=== PATIENT | female | born 1980 | race Caucasian/White ===

== ENCOUNTER 2019-09-27 10:45 | Observation (INO) | payer OTHER ==
[~2019-09-27] VITALS: Ht 167.6 cm; Wt 81.8 kg
--- NOTE | 2019-09-27 10:59 | NUR ---
SLOT FLOOR PERSON: PT TO ROOM VIA WHEELCHAIR
--- NOTE | 2019-09-27 11:12 | NUR ---
PT CAME IN CO LEFT LEG PAIN AND SWELLING. PT ALSO STATES SHE HAS BEEN GETTING SOB EASIER AND EASIER SINCE THURSDAY. PT HAS HX OF DVTS. ACCOMPANIED BY . PT IS CONNECTED TO MONITORING EQUIPMENT
[2019-09-27 11:52] LABS: BASOPHILS # (AUTO) 0.08 x10^3/uL (0-0.1); BASOPHILS % (AUTO) 1 % (0-1); EOSINOPHILS # (AUTO) 0.12 x10^3/uL (0-0.4); EOSINOPHILS % (AUTO) 1 % (1-7); LYMPHOCYTES # (AUTO) 1.19 x10^3/uL (1-3.4); LYMPHOCYTES % (AUTO) 12 % (22-44); MD NO; MEAN CORPUSCULAR HEMOGLOBIN 31.2 pg (27.0-34.8); MEAN CORPUSCULAR HGB CONC 32.5 g/dL (32.4-35.8); MEAN CORPUSCULAR VOLUME 96.1 fL (80-100); MEAN PLATELET VOLUME 7.6 fL (7.4-10.4); MONOCYTES # (AUTO) 0.56 x10^3/uL (0.2-0.8); MONOCYTES % (AUTO) 6 % (2-9); NEUTROPHILS # (AUTO) 8.13 x10^3/uL (1.8-6.8); NEUTROPHILS % (AUTO) 81 % (42-75); PLATELET COUNT 267 x10^3/uL (130-400); RED CELL DISTRIBUTION WIDTH 13.1 % (9.6-15.2)
[2019-09-27 12:04] LABS: ALANINE AMINOTRANSFERASE 15 U/L (12-78); ALBUMIN 3.5 g/dL (3.4-5.0); ANION GAP 10 mmol/L (5-15); CHLORIDE 107 mmol/L (98-107); CREATININE 0.82 mg/dL (0.55-1.02)
[2019-09-27 12:06] LABS: ALKALINE PHOSPHATASE 87 U/L (45-117); BILIRUBIN,TOTAL 0.6 mg/dL (0.2-1.0); TOTAL PROTEIN 7.8 g/dL (6.4-8.2)
[2019-09-27 12:12] LABS: INTERNATIONAL NORMALIZED RATIO 0.96 (0.93-1.1); PROTHROMBIN TIME 10.2 Seconds (9.6-11.5)
[2019-09-27 12:20] LABS: D-DIMER 9.81 ug/mlFEU (0.00-0.52)
[2019-09-27] MEDS ORDERED: OMNIPAQUE 350 MG/ML, 75ML BOTTLE ONE (13:49)
[2019-09-27] MEDS ORDERED: APIXABAN 5 MG TABLET ONE (14:50)
[2019-09-27 15:48] VITALS: BP 150/97
[2019-09-27] MEDS ORDERED: ONDANSETRON 2MG/ML, 2ML IVPush PRN (16:00)
[2019-09-27] MEDS ORDERED: ACETAMINOPHEN 325 MG TABLET PO PRN (16:00)
[2019-09-27] MEDS ORDERED: ONDANSETRON ODT 4 MG PO PRN (16:00)
[2019-09-27] MEDS: ENOXAPARIN 80 MG/0.8 ML SQ SCH (16:54)
[2019-09-27 20:00] VITALS: BP 141/92
[2019-09-27] MEDS ORDERED: APIXABAN 5 MG TABLET PO ONE (21:00)
[2019-09-28 04:02] VITALS: BP 136/87
[2019-09-28] MEDS: ENOXAPARIN 80 MG/0.8 ML SQ SCH ×2 (05:26→17:06)
[2019-09-28 05:32] VITALS: BP 143/89
[2019-09-28 06:26] LABS: BASOPHILS # (AUTO) 0.05 x10^3/uL (0-0.1); BASOPHILS % (AUTO) 1 % (0-1); EOSINOPHILS # (AUTO) 0.28 x10^3/uL (0-0.4); EOSINOPHILS % (AUTO) 3 % (1-7); LYMPHOCYTES # (AUTO) 1.48 x10^3/uL (1-3.4); LYMPHOCYTES % (AUTO) 17 % (22-44); MD NO; MEAN CORPUSCULAR HEMOGLOBIN 31.4 pg (27.0-34.8); MEAN CORPUSCULAR HGB CONC 32.8 g/dL (32.4-35.8); MEAN CORPUSCULAR VOLUME 95.9 fL (80-100); MEAN PLATELET VOLUME 7.8 fL (7.4-10.4); MONOCYTES # (AUTO) 0.61 x10^3/uL (0.2-0.8); MONOCYTES % (AUTO) 7 % (2-9); NEUTROPHILS # (AUTO) 6.35 x10^3/uL (1.8-6.8); NEUTROPHILS % (AUTO) 72 % (42-75); PLATELET COUNT 268 x10^3/uL (130-400); RED BLOOD COUNT 4.38 x10^6/uL (3.82-5.3); RED CELL DISTRIBUTION WIDTH 13.5 % (9.6-15.2)
[2019-09-28 06:34] LABS: ALBUMIN 3.3 g/dL (3.4-5.0); ANION GAP 9 mmol/L (5-15); CALCIUM 8.7 mg/dL (8.5-10.1); CHLORIDE 108 mmol/L (98-107)
[2019-09-28 06:47] LABS: ALANINE AMINOTRANSFERASE 14 U/L (12-78); ALKALINE PHOSPHATASE 78 U/L (45-117); BILIRUBIN,TOTAL 0.6 mg/dL (0.2-1.0); CREATININE 0.72 mg/dL (0.55-1.02); TOTAL PROTEIN 7.4 g/dL (6.4-8.2)
[2019-09-28 08:05] VITALS: BP 161/113
[2019-09-28 15:21] VITALS: BP 148/89
[2019-09-28] MEDS ORDERED: APIX5TAB PO (18:15)
[2019-09-29] MEDS ORDERED: APIXABAN 5 MG TABLET PO SCH (05:00)
[2019-10-06] MEDS ORDERED: APIXABAN 5 MG TABLET PO SCH (09:00)
== END 2019-09-28 18:54 | disposition home or self-care (01) ==
LOC: ED 11:33 → INTOOBSV 14:19 → EDIP 14:19 → 4EST 14:20 → OBSVTOIN 14:24 → INTOOBSV 14:24 → 4EST 16:45
PROVIDERS: ADMIT Hospitalist; ATTEND Hospitalist
DX: I82.402 Acute embolism and thrombosis of unspecified deep veins of left lower extremity (principal); I26.99 Other pulmonary embolism without acute cor pulmonale; M79.662 Pain in left lower leg; D72.829 Elevated white blood cell count, unspecified; Z86.72 Personal history of thrombophlebitis; Z79.899 Other long term (current) drug therapy
CPT/HCPCS: 36415; 71275; 80053; 84443; 85025; 85303; 85306; 85379; 85598; 85610; 85613; 85670; 85730; 85732; 86146; 86147; 93005; 93306; 93971; 96372; 99291; G0378; J1650; Q9967

== ENCOUNTER → 2020-03-12 | Outpatient (CLI) | payer OTHER ==
[~2020-03-12] MED LIST: APIX5TAB PO; OMNIPAQUE 350 MG/ML, 150 ML BOTTLE ONE
== END | disposition home or self-care (01) ==
LOC: CFH 08:44
PROVIDERS: ATTEND Pathology Hematology
DX: I26.99 Other pulmonary embolism without acute cor pulmonale (principal); Q89.09 Congenital malformations of spleen
CPT/HCPCS: 74177; Q9967